=== PATIENT | female | born 1950 | race Caucasian/White ===

== ENCOUNTER → 2018-07-13 | Day surgery (SDC) | payer OTHER ==
[~2018-07-13] VITALS: Ht 160 cm; Wt 68.0 kg
[~2018-07-13] MED LIST: ALENDRONATE SOD70 M1 PO; ATORVASTATIN CA80 M1 PO; CALCIUM 600 +1 EAC2 PO; DULOXETINE HCL60 MG PO; ECPIRIN325 MG PO; FISH OIL + D31 EACH PO; LANTUS SOL100 UNIT/1 SQ; LISINOPRIL-HCT1 EACH PO; LYRICA100 M1 PO; Lopressor25 MG PO; METFORMIN HYD1000 MG PO; VITAMIN B121000 MC1 PO
--- NOTE | ~2018-07-13 | O ---
[place], [place] OPERATIVE NOTE NAME: GABRIELE HDZ UNIT #: [id number] ROOM: DOCTOR: NHUNG WESTFALL MD BIRTHDATE: [birth year] DOS: 07/13/2018 PREOPERATIVE DIAGNOSIS: Cataract, right eye. POSTOPERATIVE DIAGNOSIS: Cataract, right eye. OPERATION: Extracapsular cataract extraction by phacoemulsification with posterior chamber intraocular lens implantation, right eye. ANESTHESIA: Monitored standby. OPERATIVE FINDINGS AND PROCEDURE: 2% Xylocaine topical anesthetic gel was applied to the eye in the preop area. The patient was taken to the operating room and prepped and draped in the standard fashion for sterile intraocular surgery. A time out procedure was performed verifying correct patient, correct site and corrects lens with Yunier Westfall M.D. The operating microscope was swung into position and the lid speculum was inserted. Using a Delores paracentesis blade, a paracentesis was made through clear cornea. Viscoelastic was used to fill the anterior chamber. Using a metal keratome a 2.4 mm self-sealing clear corneal cataract incision was made temporally at the limbus. Using a pre-bent 25 gauge cystotome needle, a standard continuous curvilinear capsulorrhexis was performed. The anterior capsule was removed with forceps. The lens nucleus was hydrodissected and phacoemulsified in the posterior chamber. Cortical material was removed with the irrigation aspiration hand piece and the posterior capsule was then polished with a curet under irrigation. The posterior chamber and capsular bag were filled with viscoelastic. A posterior chamber intraocular lens manufactured by: Jan, Model AU00T0 and 18.0 diopters in strength were then inserted into the posterior chamber and within the capsular bag using the lens cartridge and injector system. Viscoelastic was removed using the irrigation aspiration handpiece. The anterior chamber was filled with balanced salt solution through the paracentesis. Both the paracentesis site and cataract incisions were hydrated with BSS and verified to be water-tight and self-sealing. Cefuroxime 1 mg/0.1 mL was injected into the anterior chamber through the paracentesis site. The incision checked to be water-tight using a Weck-Luz sponge. The integrity of the cataract wound and ocular tension were checked. Lid speculum and drapes were removed. The patient was transferred from the operating room to the recovery room in satisfactory condition. [place], [place] OPERATIVE NOTE NAME: GABRIELE HDZ UNIT #: [id number] ROOM: DOCTOR: NHUNG WESTFALL MD BIRTHDATE: [birth year] NHUNG WESTFALL MD CM:OPRECORD:OPERATIVE NOTE [id number] NHUNG WESTFALL MD 07/13/18 1136 interface
[2018-07-13 07:35] VITALS: BP 125/47
[2018-07-13 08:34] VITALS: BP 108/46
[2018-07-13 08:49] VITALS: BP 112/50
[2018-07-13 09:04] VITALS: BP 122/57
== END | disposition home or self-care (01) ==
LOC: SDC 07-08 12:30
DX: E10.36 Type 1 diabetes mellitus with diabetic cataract (principal); H25.811 Combined forms of age-related cataract, right eye; I10 Essential (primary) hypertension; I25.10 Atherosclerotic heart disease of native coronary artery without angina pectoris; I25.2 Old myocardial infarction; F17.210 Nicotine dependence, cigarettes, uncomplicated; F12.90 Cannabis use, unspecified, uncomplicated; Z88.8 Allergy status to other drugs, medicaments and biological substances; Z95.818 Presence of other cardiac implants and grafts; Z79.82 Long term (current) use of aspirin; Z79.899 Other long term (current) drug therapy; Z79.4 Long term (current) use of insulin; Z90.710 Acquired absence of both cervix and uterus; Z98.890 Other specified postprocedural states; Z72.89 Other problems related to lifestyle; Z83.3 Family history of diabetes mellitus

== ENCOUNTER → 2018-08-03 | Day surgery (SDC) | payer OTHER ==
[~2018-08-03] VITALS: Ht 160 cm; Wt 65.8 kg
--- NOTE | ~2018-08-03 | O ---
[place], [place] OPERATIVE NOTE NAME: GABRIELE HDZ UNIT #: [id number] ROOM: DOCTOR: NHUNG WESTFALL MD BIRTHDATE: [birth year] DOS: 08/03/2018 PREOPERATIVE DIAGNOSIS: Cataract, left eye. POSTOPERATIVE DIAGNOSIS: Cataract, left eye. OPERATION: Extracapsular cataract extraction by phacoemulsification with posterior chamber intraocular lens implantation, left eye. ANESTHESIA: Monitored standby. OPERATIVE FINDINGS AND PROCEDURE: 2% Xylocaine topical anesthetic gel was applied to the eye in the preop area. The patient was taken to the operating room and prepped and draped in the standard fashion for sterile intraocular surgery. A time out procedure was performed verifying correct patient, correct site and corrects lens with Yunier Westfall M.D. The operating microscope was swung into position and the lid speculum was inserted. Using a Delores paracentesis blade, a paracentesis was made through clear cornea. Viscoelastic was used to fill the anterior chamber. Using a metal keratome a 2.4 mm self-sealing clear corneal cataract incision was made temporally at the limbus. Using a pre-bent 25 gauge cystotome needle, a standard continuous curvilinear capsulorrhexis was performed. The anterior capsule was removed with forceps. The lens nucleus was hydrodissected and phacoemulsified in the posterior chamber. Cortical material was removed with the irrigation aspiration hand piece and the posterior capsule was then polished with a curet under irrigation. The posterior chamber and capsular bag were filled with viscoelastic. A posterior chamber intraocular lens manufactured by: Jan, Model AU00T0, 17.5 diopters in strength were then inserted into the posterior chamber and within the capsular bag using the lens cartridge and injector system. Viscoelastic was removed using the irrigation aspiration handpiece. The anterior chamber was filled with balanced salt solution through the paracentesis. Both the paracentesis site and cataract incisions were hydrated with BSS and verified to be water-tight and self-sealing. Cefuroxime 1 mg/0.1 mL was injected into the anterior chamber through the paracentesis site. The incision checked to be water-tight using a Weck-Luz sponge. The integrity of the cataract wound and ocular tension were checked. Lid speculum and drapes were removed. The patient was transferred from the operating room to the recovery room in satisfactory condition. [place], [place] OPERATIVE NOTE NAME: GABRIELE HDZ UNIT #: [id number] ROOM: DOCTOR: NHUNG WESTFALL MD BIRTHDATE: [birth year] NHUNG WESTFALL MD CM:OPRECORD:OPERATIVE NOTE [phone] NHUNG WESTFALL MD 08/03/18910 interface
[2018-08-03 07:15] VITALS: BP 134/72
[2018-08-03 08:32] VITALS: BP 138/58
[2018-08-03 08:45] VITALS: BP 135/57
[2018-08-03 08:58] VITALS: BP 125/58
== END | disposition home or self-care (01) ==
LOC: SDC 07-28 12:30
DX: E11.36 Type 2 diabetes mellitus with diabetic cataract (principal); H25.812 Combined forms of age-related cataract, left eye; I25.2 Old myocardial infarction; I25.10 Atherosclerotic heart disease of native coronary artery without angina pectoris; I10 Essential (primary) hypertension; F15.11 Other stimulant abuse, in remission; E11.40 Type 2 diabetes mellitus with diabetic neuropathy, unspecified; F41.9 Anxiety disorder, unspecified; F17.210 Nicotine dependence, cigarettes, uncomplicated; F32.9 Major depressive disorder, single episode, unspecified; Z98.41 Cataract extraction status, right eye; Z79.82 Long term (current) use of aspirin; Z79.4 Long term (current) use of insulin; Z79.899 Other long term (current) drug therapy; Z72.89 Other problems related to lifestyle; Z90.710 Acquired absence of both cervix and uterus; Z95.818 Presence of other cardiac implants and grafts; Z88.8 Allergy status to other drugs, medicaments and biological substances; Z98.890 Other specified postprocedural states; Z83.3 Family history of diabetes mellitus

== ENCOUNTER 2019-07-06 15:24 | Inpatient (IN) | payer MEDICARE ==
[2019-07-06] VITALS (9 sets, daily range): BP systolic 120–157; BP diastolic 54–97
[~2019-07-06] VITALS: Ht 160 cm; Wt 65.1 kg
[2019-07-06 15:51] LABS: BASO % 0.3 % (0.0-1.0); EOS % 0.1 % (1.0-4.0); HEMATOCRIT 44.2 % (37.0-47.0); HEMOGLOBIN 14.4 g/dl (12.0-16.0); LYMPH # 1.5 10*3/uL (1.3-4.4); LYMPH % 13.9 % (27.0-41.0); MEAN CELL VOLUME 85.2 fl (81.0-99.0); MEAN CORPUSCULAR HGB 27.7 pg (27.0-31.0); MEAN CORPUSCULAR HGB CONC 32.6 g/dl (33.0-37.0); MEAN PLATELET VOLUME 12.6 fl (9.6-12.3); MONO # 1.2 10*3/uL (0.1-1.0); NEUT # 7.9 10*3/uL (2.3-7.9); NEUT % 74.4 % (47.0-73.0); PLATELET COUNT AUTOMATED 205 10*3/uL (130-400); RED BLOOD COUNT 5.19 10*6/uL (4.10-5.10); RED CELL DISTRI WIDTH 16.4 % (0-14.5); WHITE BLOOD COUNT 10.6 10*3/uL (4.8-10.8)
[2019-07-06 16:42] LABS: ACT PARTIAL THROMBO TIME 29.9 SECONDS (20.0-32.1)
[2019-07-06 16:45] LABS: ALBUMIN 3.3 gm/dl (3.1-4.5); BUN 23 mg/dl (7-24); CHLORIDE 101 mmol/L (98-107); CREATININE 0.89 mg/dL (0.55-1.02); POTASSIUM 3.2 mmol/L (3.5-5.1); SGOT/AST 26 IU/L (3-35); SGPT/ALT 18 U/L (12-78); SODIUM 138 mmol/L (136-145); TOTAL PROTEIN 7.2 gm/dL (6.4-8.2)
[2019-07-06 16:47] LABS: ALKALINE PHOSPHATASE 68 U/L (45-117)
--- NOTE | 2019-07-06 17:08 | NUR ---
PATIENT CARDIZEM DRIP INCREASED TO 10MCG/HR. HR 149, B/P 130/97.
--- NOTE | 2019-07-06 18:55 | NUR ---
LAB CALLED WITH CRITICAL TROPONIN OF 1.810 M. FIFI NOTIFIED.
--- NOTE | 2019-07-06 21:00 | NUR ---
PT RESTING IN BED AT THIS TIME WATCHING TV. PT HAS BEEN ASSISTED TO THE RESTROOM BY THIS NURSE. AMBULATED WITH STEADY GAIT. DENIED THE NEED FOR ANYTHING AT THIS TIME. CALL LIGHT WITHIN REACH.
--- NOTE | 2019-07-06 21:40 | NUR ---
A 68, admitted to [facility]U, under the services of JERALD Weber DO with a diagnosis of pneumonia, afib with RVR. Chief complaint is "coughing and flu like symptoms for 3 days". Patient arrived via stretcher from ER. Monitor applied. Initial assessment completed. Vital signs taken and recorded. JERALD WEBER DO notified of admission to the unit. Orders received. See assessment for past medical history, medications and allergies. Patient and/or family oriented to unit. [facility] visitation policy reviewed. Clothing/patient valuable form completed. JESSICA BENNETT
[2019-07-06] MEDS ORDERED: CODEINE PO (22:30)
[2019-07-06] MEDS ORDERED: TYLENOL PO (22:30)
--- NOTE | 2019-07-06 23:53 | NUR ---
AT 2320 DR LUCIA NOTIFIED OF PT CONSULT. NO NEW ORDERS RECEIVED. DR VASQUEZ HERE DURING NOTIFICATION....HE IS ALSO AWARE OF LAST TROPONIN AND CTA RESULTS. PT REMAINS ASYMPTOMATIC, DENYING CHEST PAIN. SHE HAD EARLIER HAD NAUSEA, WHICH SHE STATES SHE VERY OFTEN HAS, BUT WAS RELIEVED WITH ZOFRAN AT 2220 AND SHE PROCEEDED TO EAT. HEPARIN GTT CONTINUES AT 12 U/KG/HR AND CARDIZEM GTT AT 10MG/HR. BOLUSES ORDERED. PT HAS BEEN UP TO [facility] [place] [place]. SHE IS STEADY AND JOKING.
[2019-07-07] VITALS (15 sets, daily range): BP systolic 81–142; BP diastolic 36–90
--- NOTE | 2019-07-07 00:50 | NUR ---
CONFIRMED WITH DR VASQUEZ THAT DR ANGELES TO BE CONSULTED IN AM, NOT AT THIS TIME, PT IS NOT IN RESPIRATORY DISTRESS AT THIS TIME.
--- NOTE | 2019-07-07 04:09 | NUR ---
PT SLEEPING. HR 90'S. BP 81/46(56). TITRATED CARDIZEM GTT DOWN TO 7.5MG/HR. PT'S SKIN W/D. SHE STATED " OH I WAS SLEEPING SO GOOD FINALLY NAVARRO NAVARRO." WILL REASSESS BP AFTER TITRATION.
--- NOTE | 2019-07-07 04:51 | NUR ---
DR VASQUEZ NOTIFIED OF BP 81/36 MAP 64. 84/40 MANUALLY. ORDERS RECEIVED.
--- NOTE | 2019-07-07 05:04 | NUR ---
HR MAINTAINING 80'S - 100/MIN. CARDIZEM TITRATED DOWN TO 5MG/HR.
--- NOTE | 2019-07-07 05:08 | NUR ---
CURRENT BAG OF NS INFUSING AT 500CC/HR UNTIL 0600 THEN TO INFUSE AT 100CC/HR. BP TO BE OBTAINED AT THAT TIME AND TO NOTIFY DR VASQUEZ.
--- NOTE | 2019-07-07 05:53 | NUR ---
PT DOZING AT INTERVALS. AT THIS TIME SHE IS SHOPPING FOR SHOES ON TV AND JOKING. DENIES DISCOMFORT.
--- NOTE | 2019-07-07 05:58 | NUR ---
DR VASQUEZ NOTIFIED OF BP 98/45(68). NO NEW ORDERS RECEIVED. IV BOLUS DONE AND NS AT 100CC/HR.
--- NOTE | 2019-07-07 06:54 | NUR ---
DR ANGELES NOTIFIED OF CONSULT. NO NEW ORDERS RECEIVED.
[2019-07-07 07:50] LABS: BASO % 0.2 % (0.0-1.0); HEMATOCRIT 40.9 % (37.0-47.0); HEMOGLOBIN 13.1 g/dl (12.0-16.0); LYMPH # 1.1 10*3/uL (1.3-4.4); LYMPH % 17.7 % (27.0-41.0); MEAN CELL VOLUME 85.9 fl (81.0-99.0); MEAN CORPUSCULAR HGB 27.5 pg (27.0-31.0); MEAN PLATELET VOLUME 12.2 fl (9.6-12.3); MONO # 0.2 10*3/uL (0.1-1.0); MONO % 3.3 % (3.0-9.0); NEUT # 4.8 10*3/uL (2.3-7.9); NEUT % 78.6 % (47.0-73.0); PLATELET COUNT AUTOMATED 177 10*3/uL (130-400); RED BLOOD COUNT 4.76 10*6/uL (4.10-5.10); RED CELL DISTRI WIDTH 16.3 % (0-14.5); WHITE BLOOD COUNT 6.1 10*3/uL (4.8-10.8)
[2019-07-07 08:10] LABS: ALKALINE PHOSPHATASE 66 U/L (45-117); BUN 20 mg/dl (7-24); CHLORIDE 105 mmol/L (98-107); CHOLESTEROL 93 mg/dL (<200); CREATININE 0.89 mg/dL (0.55-1.02); FREE T4 1.25 ng/dl (0.76-1.46); HDL CHOLESTEROL 35 mg/dl (40-60); LDL CHOLESTEROL 41 mg/dL (9-159); PHOSPHOROUS 3.4 mg/dL (2.5-4.9); SGOT/AST 23 IU/L (3-35); SGPT/ALT 18 U/L (12-78); SODIUM 138 mmol/L (136-145); TRIGLYCERIDES 86 mg/dl (<150); VLDL CHOLESTEROL 17 mg/dL (6-40)
[2019-07-07 08:14] LABS: THYROID STIM HORMONE (HS) 0.432 uIU/ml (0.358-4.75)
[2019-07-07 09:06] LABS: VITAMIN D, 25-HYDROXY 57.2 ng/mL (30-100)
--- NOTE | 2019-07-07 09:40 | NUR ---
PATIENT INSTRUCTED ON FLUTTER VALVE.
--- NOTE | 2019-07-07 11:00 | NUR ---
Counseling Center Director in to talk to patient. Patient states lives at home with her . She is currently taking care of her brother. There are 0 steps in the home. Physician: Dr. Maged Villa Pharmacy: [facility] for short term medications and mail in for maintenance Home health services: none Patient's level of ADLs: INDEPENDENT Patient has working utilities: yes DME: none Follow-up physician's appointment after d/c: will be made by the hospitalist nurse director upon discharge Does patient want to access PORTAL?: no Discharge plan discussed with patient. Family at bedside. She lives at home with her and is currently taking care of her brother. She is independent in her ADLs and ambulation. Discussed home health care services and she denies any home needs at this time. When medically stable she will be discharged to home. Her family will provide transportation on discharge. WOODY MONTEJO
--- NOTE | 2019-07-07 14:42 | NUR ---
PT TRANSFERED TO [facility] AT THIS TIME VIA BED. REPORT GIVEN TO MEENA MG.
--- NOTE | 2019-07-07 15:00 | NUR ---
REPORT RECIEVED FROM SAURAV SCOTT.INITIAL ASSESSMENT COMPLETED AT THIS TIME. VOICES NO NEEDS. STABLE.RESPS EASY ON RA.WILL CONTINUE TO MONITOR.
--- NOTE | 2019-07-07 19:20 | NUR ---
IN PT ROOM AT THIS TIME TO COMPLETE ASSESSMENT. PT STATES THAT SHE HAS NO COMPLAINTS AT THIS TIME, THAT SHE IS JUST TIRED OTHER RODRIGUEZ NEGATIVE ASSESSMENT. CALL LIGHT IS WITHIN REACH, WILL CONTINUE TO MONITOR
--- NOTE | 2019-07-07 21:20 | NUR ---
CALLED PHARMACY TO SEE IF ROCEPHIN IS COMPATIBLE WITH CARDIZEM OR HEPARIN, AND THEY STATE THAT IT IS COMPATIBLE WITH BOTH
--- NOTE | 2019-07-07 21:33 | NUR ---
IV started right hand with #22 protective cath after 1 attempts. Site prepped with Chloroprep. Sterile dressing applied. Patient tolerated procedure well. IV infusing at 100 cc/hr. LANIE MCCOY
--- NOTE | 2019-07-07 22:40 | NUR ---
PT CARDIZEM TITRATED DOWN TO 5 DUE TO HR SUSTAINING IN THE 70-80'S. WILL CONTINUE TO ASSES AND EVALUATE AGAIN AT 2300
--- NOTE | 2019-07-07 22:47 | NUR ---
CALLED DR VASQUEZ DUE TO PT HR IN THE 60S AFTER BUMPING CARDIZEM TO 5ML/HR. HE STATES TO TAKE HER DOWN TO 2.5 ML/HR AND REASSES IN A HALF HOUR
--- NOTE | 2019-07-07 23:14 | NUR ---
PT REQUESTING SOMETHING TO HELP HER SLEEP. PRN RESTORIL PO IS GIVEN AT THIS TIME. CALL LIGHT WITHIN REACH, WILL CONTINUE TO MONITOR
--- NOTE | 2019-07-07 23:50 | NUR ---
DR VASQUEZ ON THE FLOOR AND STATES TO TAKE THE PT OFF THE CARDIZEM. PT IS TAKEN OFF OF THE CARDIZEM DRIP AT THIS TIME. CALL LIGHT WITHIN REACH, WILL CONTINUE TO MONITOR
[2019-07-08] VITALS (11 sets, daily range): BP systolic 106–146; BP diastolic 43–78
--- NOTE | 2019-07-08 00:40 | NUR ---
24 HR chart check completed.
--- NOTE | 2019-07-08 03:56 | NUR ---
DR VASQUEZ ON THE FLOOR AND NOTIFIED OF HR THAT DIPPED DOWN TO 45 AND IS NOW STEADY OF HR 60-70'S. STATES TO CONTINUE TO MONITOR
--- NOTE | 2019-07-08 05:14 | NUR ---
CALLED DR VASQUEZ DUE TO PT HR BEING IN 130S AND HE STATES TO PUT PT BACK ON CARDIZEM AT 2.5ML/HR AND MONITOR HER AT THAT
[2019-07-08 06:12] LABS: CHLORIDE 112 mmol/L (98-107); SODIUM 143 mmol/L (136-145)
[2019-07-08 06:23] LABS: BUN 18 mg/dl (7-24); CREATININE 0.76 mg/dL (0.55-1.02)
[2019-07-08 06:26] LABS: HEMATOCRIT 40.1 % (37.0-47.0); HEMOGLOBIN 12.8 g/dl (12.0-16.0); MEAN CELL VOLUME 84.4 fl (81.0-99.0); MEAN CORPUSCULAR HGB 26.9 pg (27.0-31.0); MEAN CORPUSCULAR HGB CONC 31.9 g/dl (33.0-37.0); MEAN PLATELET VOLUME 12.3 fl (9.6-12.3); PLATELET COUNT AUTOMATED 214 10*3/uL (130-400); RED BLOOD COUNT 4.75 10*6/uL (4.10-5.10); RED CELL DISTRI WIDTH 16.6 % (0-14.5); WHITE BLOOD COUNT 13.2 10*3/uL (4.8-10.8)
[2019-07-08 07:33] LABS: ACANTHOCYTES FEW; PLATELET SUFFICIENCY NORMAL (NORMAL); TOTAL CELLS COUNTED 100 #CELLS
--- NOTE | 2019-07-08 08:00 | NUR ---
CARDIZEM GTT AT 2.5 CC/HR, HEART RATE AFIB BOUNCING ALL OVER FROM 79-140. MAINLY LOW 100'S. CARDIZEM GTT INCREASED TO 5/HR.
--- NOTE | 2019-07-08 09:00 | NUR ---
CARDIZEM GTT IS NOW AT 10CC/HR DUE TO UNCONTROLLED AFIB.
--- NOTE | 2019-07-08 09:30 | NUR ---
DR. CUADRA HAS ROUNED.
--- NOTE | 2019-07-08 10:50 | NUR ---
DR. LUCIA HAS ROUNDED AND NEW ORDER TO INCREASE TOPROL XL.
--- NOTE | 2019-07-08 11:45 | NUR ---
DR. ANGELES HERE ROUNDING ON PATIENT.
--- NOTE | 2019-07-08 12:06 | NUR ---
SPOKE TO DR. BETH SALVADOR PATIENT IS ORDERED A STRESS TEST WEDNESDAY AND A BRONCH. WILL TOUCH BASE WITH DR. ANGELES.
--- NOTE | 2019-07-08 12:31 | NUR ---
DR. LUCIA IS DOING STRESS TEST WEDNESDAY, BRONCHOSCOPY WEDNESDAY WITH DR. ANGELES, SPOKE WITH BOTH DOCTORS REGARDING THIS AND REFORMATORY ATTENDANT. SENT NEW MESSAGE TO OPERATING ROOM.
--- NOTE | 2019-07-08 19:40 | NUR ---
IN PT ROOM TO COMPLETE ASSESSMENT, PT COMPLAINS OF BACK AND RIB PAIN DUE TO COUGHIN AND WANTS TO KNOW IF SHE CAN HAVE COUGH DROPS ORDERED. 2 IV SITES STILL RUNNING AND ASYMPTOMATIC. CALL LIGHT WITHIN REACH, WILL CONTINUE TO MONITOR
--- NOTE | 2019-07-08 19:51 | NUR ---
CALLED DR BYRD AND HE STATES TO ADD A ORDER OF COUGH DROPS PER THE PT REQUST, WILL ADD ORDER REQUSTED
--- NOTE | 2019-07-08 19:58 | NUR ---
PT STATES SHE IS HAVING PAIN IN HER RIBS AND ABCK AND RATES IS 8/10. PRN NORCO IS GIVEN AT THIS TIME, WILL CONTINUE TO MONITOR FOR EFFECTIVENESS
--- NOTE | 2019-07-08 20:59 | NUR ---
IN PT ROOM AT THIS TIME AND SHE STATES THAT THE PAIN PILL IS EFFECTIVE. PRN RESTORIL PO GIVEN AT THIS TIME TO HELP THE PATIENT SLEEP
--- NOTE | 2019-07-08 21:30 | NUR ---
CALLED DR BYRD AND HE STATES TO BUMP DOWN CARDIZEM FROM 10 TO 5 DUE TO HR BEING IN 55-80'S AND MONITOR HER HEART RATE THEN
--- NOTE | 2019-07-08 21:51 | NUR ---
PT TITRATED TO 2.5ML/HR ON CARDIZEM PER DR BYRD REQUEST DUE TO HR BEING 50-60S
--- NOTE | 2019-07-08 21:55 | NUR ---
CALLED DR LUCIA DUE TO PT HR BEING 47-60S. HE STATES LONG THE HR IS LESS THAN 100 TO KEEP HER OFF OF THE CARDIZEM DRIP. CARDIZEM STOPPED AT THIS TIME
[2019-07-09] VITALS (8 sets, daily range): BP systolic 133–162; BP diastolic 57–83
--- NOTE | 2019-07-09 00:19 | NUR ---
24 HR chart check completed.
--- NOTE | 2019-07-09 08:00 | NUR ---
PATIENT REMAINS OFF CARDIZEM GTT, HOWEVER HR IS 80-120 AFTER BEING WOKE. WILL MONITOR.
--- NOTE | 2019-07-09 09:30 | NUR ---
PER DR. MCCARTHY DO NOT RESTART CARDIZEM GTT UNLESS PATIENT HR MAINTAINS > 120.
--- NOTE | 2019-07-09 10:24 | NUR ---
MEDICATED WITH PRN NORCO PER ORDER AND REQUEST.
--- NOTE | 2019-07-09 10:58 | NUR ---
CARDIZEM GTT RESTARTED AT 10CC/HR HR STILL ALL OVER THE PLACE FROM 110-140 DEPENDING ON ACTIVITY. PATIENT UP AND BATHING AT THIS TIME. PER DR. CAMPOS RESTART.
--- NOTE | 2019-07-09 19:29 | NUR ---
IN PT ROOM AT THIS TIME PT IS COMPLAINING OF A COUGH, SHE NOTES THAT THE COUGH DROPS ARE NOT HELPING. IVS RUNNING AND NO PROBLEMS THERE. CALL LIGHT WITHIN REACH, WILL CONTINUE TO MONITOR. CALLED DR BYRD PER PT REQUEST OF WANTING SOMETHING TO HELP DECREASE HER COUGH, HE WILL ADD AN ORDER
--- NOTE | 2019-07-09 19:57 | NUR ---
NORCO FOR PAIN AND ROBITUSSIN FOR COUGH IS GIVEN, WILL MONITOR FOR EFFECTIVENESS
--- NOTE | 2019-07-09 20:39 | NUR ---
DR LUCIA ON THE FLOOR AND STATES THROUGH THE NIGHT IF PT HR REMAINS UNDER 100 TO KEEP HER OFF OF THE CARDIZEM DRIP
--- NOTE | 2019-07-09 21:55 | NUR ---
PT TAKEN OFF CARDIZEM DUE TO HR SUSTAINING <100. WILL CONTINUE TO MONITOR
--- NOTE | 2019-07-09 23:05 | NUR ---
IN PT ROOM AT THIS TIME TO SEE IF RESTORIL WAS EFFECTIVE AND PT IS SLEEPING. CALL LIGHT IS WITHIN REACH, WILL CONTINUE TO MONITOR
[2019-07-10] VITALS (7 sets, daily range): BP systolic 142–168; BP diastolic 63–90
--- NOTE | 2019-07-10 01:51 | NUR ---
24 HR chart check completed.
--- NOTE | 2019-07-10 03:36 | NUR ---
PT STATED ON 5 ML/HR CARDIZEM AT THIS TIME DUE TO HR BEING 120-130S. WILL CONTINUE TO MONITOR
--- NOTE | 2019-07-10 04:02 | NUR ---
PT OFF CARDIZEM AT THIS TIME DUE TO HR BEING IN THE 40S WILL CONTINUE TO MONITOR
[2019-07-10 06:55] LABS: BASO % 0.2 % (0.0-1.0); HEMOGLOBIN 14.2 g/dl (12.0-16.0); LYMPH # 2.2 10*3/uL (1.3-4.4); LYMPH % 15.5 % (27.0-41.0); MEAN CELL VOLUME 84.7 fl (81.0-99.0); MEAN CORPUSCULAR HGB 26.7 pg (27.0-31.0); MEAN CORPUSCULAR HGB CONC 31.6 g/dl (33.0-37.0); MEAN PLATELET VOLUME 12.4 fl (9.6-12.3); MONO % 7.2 % (3.0-9.0); NEUT # 10.7 10*3/uL (2.3-7.9); PLATELET COUNT AUTOMATED 235 10*3/uL (130-400); RED BLOOD COUNT 5.31 10*6/uL (4.10-5.10); RED CELL DISTRI WIDTH 16.9 % (0-14.5)
[2019-07-10 07:13] LABS: BUN 20 mg/dl (7-24); CHLORIDE 105 mmol/L (98-107); CREATININE 0.75 mg/dL (0.55-1.02); POTASSIUM 3.3 mmol/L (3.5-5.1); SODIUM 140 mmol/L (136-145)
--- NOTE | 2019-07-10 09:11 | NUR ---
HEPARIN CHANGED TO 14U/KG/HR D/T PTT OF 41.5 THIS MORNING. REPEAT PTT WILL BE DRAWN AT 1430
--- NOTE | 2019-07-10 10:27 | NUR ---
INFORMED CONSENT SIGNED FOR LEXISCAN WITH DR. GERBER. RESTING EKG AFIB, HR 133, BP 124/68. PULSE OX 93% WITH BILATERAL RHONCHI. COMPLETED ONE MINUTE OF LEXISCAN PROTOCOL RECEIVING LEXISCAN 0.4MG OVER 10 SECONDS. PVC'S (COUPLETS) PRESENT WITH NO ST CHANGES. PT C/O SOB AND STOMACH PAIN. LAST RECOVERY HR 149, BP 128/64. WAITING NUCLEAR SCANNING IN STABLE CONDITION.
--- NOTE | 2019-07-10 11:29 | NUR ---
PT BACK FROM STRESS TEST
--- NOTE | 2019-07-10 11:51 | NUR ---
PTS HEART SUSTAINING 150-160'S. CALLED DR GERBER WHO STATES TO PUT CARDIZEM DRIP BACK ON-15MG BOLUS AND THEN AT 5MG/H.
--- NOTE | 2019-07-10 15:13 | NUR ---
Shift chart check completed.
--- NOTE | 2019-07-10 15:17 | NUR ---
PTT IS NOW 41.3. ADJUSTED TO 16U/KG/HR-10.4 ML/H PER HERPARIN PROTOCOL. VERIFIED BY TWO RNS. REPEAT PTT ORDERED FOR 6 HOURS LATER.
--- NOTE | 2019-07-10 20:15 | NUR ---
PATIENT'S CARDIZEM TITRATED UP FROM 5MG/HR TO 10MG/HR DUE TO HEART RATE BEING IN THE 110'S-130'S CONTINUOUSLY. WILL MONITOR PATIENT.
--- NOTE | 2019-07-10 21:45 | NUR ---
APTT 58.0. WITHIN THERAPEUTIC RANGE. NO CHANGE AT THIS TIME PER ORDER/PROTOCOL. APTT ENTERED FOR 0507/11/2019
--- NOTE | 2019-07-10 22:45 | NUR ---
PATIENT'S HR IN 70'S AND LOW 80'S. CARDIZEM TITRATED DOWN TO 5MG/HR
[2019-07-11] VITALS (13 sets, daily range): BP systolic 125–160; BP diastolic 61–100
--- NOTE | 2019-07-11 00:21 | NUR ---
PATIENT'S HEART RATE DROPPING DOWN INTO THE HIGH 50'S AND 60'S. STOPPED CARDIZEM DRIP. NOTIFIED DR CAMPOS.
[2019-07-11 05:43] LABS: BUN 22 mg/dl (7-24); CHLORIDE 103 mmol/L (98-107); CREATININE 0.75 mg/dL (0.55-1.02); POTASSIUM 3.7 mmol/L (3.5-5.1); SODIUM 140 mmol/L (136-145)
--- NOTE | 2019-07-11 05:48 | NUR ---
CALLED. AWARE THAT HEPARIN STILL RUNNING AT THIS TIME. INSTRUCTED TO D/C HEPARIN GTT NOW PT IS FOR A BRONCH TODAY. HEPARIN GTT D/Josue.
--- NOTE | 2019-07-11 06:13 | NUR ---
PATIENT'S HEART RATE IN THE 110'S-140'S CONTINUOUSLY. RESTARTED CARDIZEM DRIP PER ORDER. WILL ASSESS.
[2019-07-11 06:24] LABS: BASO % 0.2 % (0.0-1.0); HEMATOCRIT 46.5 % (37.0-47.0); HEMOGLOBIN 14.9 g/dl (12.0-16.0); LYMPH # 2.2 10*3/uL (1.3-4.4); LYMPH % 20.7 % (27.0-41.0); MEAN CELL VOLUME 84.5 fl (81.0-99.0); MEAN CORPUSCULAR HGB 27.1 pg (27.0-31.0); MEAN PLATELET VOLUME 12.5 fl (9.6-12.3); MONO # 0.8 10*3/uL (0.1-1.0); MONO % 7.7 % (3.0-9.0); NEUT # 7.6 10*3/uL (2.3-7.9); NEUT % 70.4 % (47.0-73.0); PLATELET COUNT AUTOMATED 225 10*3/uL (130-400); RED CELL DISTRI WIDTH 16.7 % (0-14.5); WHITE BLOOD COUNT 10.7 10*3/uL (4.8-10.8)
--- NOTE | 2019-07-11 09:30 | NUR ---
Pie Chef in to see patient. She is currently not in her room. Will follow up at a later time.
--- NOTE | 2019-07-11 11:07 | NUR ---
RETURN FROM SURGERY
--- NOTE | 2019-07-11 11:09 | NUR ---
SPOKE TO ELIZ CRABTREE TO RESTART HEAPRIN 07/12/19 AT 0600. WILL NOTIFY CARDIOLOGY
--- NOTE | 2019-07-11 11:47 | NUR ---
cardiology in to see patient. keep patient npo at midnight tonight for possible ronal with cardioversion tomorrow. will have patient receive one dose of lovenox in the am and then start on oral anticoagulation if needed tomorrow evening. will start cardizem po to help with rate control. dr. moreno will enter orders
--- NOTE | 2019-07-11 12:06 | NUR ---
PT COMPLAIN OF PAIN, GENERALIZED CHEST. NORCO GIVEN.
--- NOTE | 2019-07-11 13:00 | NUR ---
NORCO EFFECTIVE FOR PAIN
--- NOTE | 2019-07-11 13:35 | NUR ---
CARDIZEM GTT STOPPED PER ORDER. WILL MONITOR HEART RATE
--- NOTE | 2019-07-11 16:42 | NUR ---
DR. ANGELES CALLED, HE IS OKAY WITH CARDIOLOGY STARTING PATIENT ON ORAL ANTICOAGULATION STARTING TOMORROW
--- NOTE | 2019-07-11 18:32 | NUR ---
PT COMPLAIN OF PAIN IN BACK/CHEST, NORCO GIVEN. WILL MONITOR FOR EFFECTIVENESS
--- NOTE | 2019-07-11 19:45 | NUR ---
PER DR. GERBER, PLEASE GIVE ONE DOSE OF THERAPEUTIC LOVENOX IN AM AT 0700, DO NOT RESTART IV HEPARIN IN AM. PT TO HAVE SANDRA WITH [facility] TOMORROW AT 11O0
--- NOTE | 2019-07-11 20:22 | NUR ---
1950 SITTING UP ON THE SIDE OF THE BED. HEP LOCK INTACT. ALERT AND PLEASANT. NO DISTRESS NOTED. AWARE OF POSSIBLE SANDRA IN AM AND NPO AFTER MIDNIGHT ORDER.
--- NOTE | 2019-07-11 21:22 | NUR ---
2109 BEDSIDE BLOOD SUGAR ELEVATED. CHECKED X'S 2. STAT REFLEX ORDERED AND LAB HERE TO DRAW. RESTORIL PO FOR SLEEP. WILL MONITOR.
--- NOTE | 2019-07-11 21:50 | NUR ---
NOTIFIED OF ELEVATED BLOOD SUGAR. ORDERS RECEIVED. WILL RECHECK BLOOD SUGAR IN 2 HOURS.
--- NOTE | 2019-07-11 22:09 | NUR ---
EARLIER RESTORIL EFFECTIVE. RESTING IN BED WITH EYES CLOSED. APPEARS TO BE SLEEPING.
[2019-07-12] VITALS (10 sets, daily range): BP systolic 102–155; BP diastolic 57–76
--- NOTE | 2019-07-12 | NUR ---
DR. CAMPOS NOTIFIED OF BEDSIDE BLOOD SUGAR OF 384. PT IS NPO NOW. TO JUST WATCH PT
--- NOTE | 2019-07-12 02:16 | NUR ---
RESTING IN BED WITH EYES CLOSED. APPEARS TO BE SLEEPING.
--- NOTE | 2019-07-12 05:07 | NUR ---
PT UP IN BR BATHING. HR UP IN THE 140'S. WHEN RESTING, HR IS LOW 40 BUT REMAINS A-FIB. WILL CONT TO MONITOR.
--- NOTE | 2019-07-12 06:06 | NUR ---
RESTING IN BED, HR IN THE 80'S. REMAINS WITHOUT C/O'S. CONDITION GUARDED.
[2019-07-12 06:56] LABS: CHLORIDE 105 mmol/L (98-107); SODIUM 141 mmol/L (136-145)
[2019-07-12 06:59] LABS: BUN 31 mg/dl (7-24); CREATININE 1.03 mg/dL (0.55-1.02)
[2019-07-12 07:13] LABS: POTASSIUM 4.8 mmol/L (3.5-5.1)
[2019-07-12 12:03] LABS: ACID FAST SPEC PROCESSING Concentration (.)
--- NOTE | 2019-07-12 12:32 | NUR ---
RETURNED FROM [facility]. SB ON THERMITE BOMB LOADER HR 58. RESP EASY AND NONLABORED ON RA. NO DISTRESS NOTED. CALL LIGHT IN REACH. WILL MONITOR
--- NOTE | 2019-07-12 14:12 | NUR ---
SPOKE WITH DR GEORGE RE: RATE AND RHYTHM AND BP, NEW ORDERS RECEIVED
--- NOTE | 2019-07-12 14:39 | NUR ---
DR GEORGE NOTIFIED OF PT FLIPPED OVER TO AFIBB HE 100-140'S. ORDERS RECEIVED.
--- NOTE | 2019-07-12 14:46 | NUR ---
DR WOODARD CALLED AND NOTIFIED OF PT IN AFIBB AT THIS TIME.
--- NOTE | 2019-07-12 16:18 | NUR ---
Heart rate improved, heart rate low to mid 100's at this time. Will monitor
--- NOTE | 2019-07-12 17:45 | NUR ---
DR GERBER CALLED AND NOTIFIED OF CONTINUED HR 120-150'S. ORDERS RECEIVED.
--- NOTE | 2019-07-12 18:54 | NUR ---
MEDICATIONS EFFECTIVE THAT IS TIME. HR 80-90'S. WILL MONITOR
[2019-07-13] VITALS (11 sets, daily range): BP systolic 116–162; BP diastolic 61–88
[2019-07-13 06:20] LABS: HEMATOCRIT 49.5 % (37.0-47.0); HEMOGLOBIN 15.4 g/dl (12.0-16.0); MEAN CELL VOLUME 86.7 fl (81.0-99.0); MEAN CORPUSCULAR HGB CONC 31.1 g/dl (33.0-37.0); MEAN PLATELET VOLUME 11.7 fl (9.6-12.3); PLATELET COUNT AUTOMATED 328 10*3/uL (130-400); RED BLOOD COUNT 5.71 10*6/uL (4.10-5.10); WHITE BLOOD COUNT 16.2 10*3/uL (4.8-10.8)
[2019-07-13 06:49] LABS: ALBUMIN 3.2 gm/dl (3.1-4.5); BUN 29 mg/dl (7-24); CHLORIDE 99 mmol/L (98-107); CREATININE 1.05 mg/dL (0.55-1.02); POTASSIUM 4.4 mmol/L (3.5-5.1); SGOT/AST 22 IU/L (3-35); SGPT/ALT 59 U/L (12-78); SODIUM 137 mmol/L (136-145); TOTAL PROTEIN 7.5 gm/dL (6.4-8.2)
[2019-07-13 06:50] LABS: ALKALINE PHOSPHATASE 73 U/L (45-117)
[2019-07-13 06:54] LABS: BURR CELLS FEW; PLATELET SUFFICIENCY NORMAL (NORMAL); TOTAL CELLS COUNTED 100 #CELLS
--- NOTE | 2019-07-13 08:00 | NUR ---
ON FLOOR AND AWARE OF A-FIB/RVR. THIS NURSE WILL NOTIFY CARDIOLOGY.
--- NOTE | 2019-07-13 08:05 | NUR ---
CARDIOLOGY CALLED AT THIS TIME REGARDING A-FIB/RVR. LEFT MESSAGE TO RECEIVE A CALL BACK. HR RANGING BETWEEN 120-150'S. PT ASYMPTOMATIC. BP 132/84. AWAITING RETURN PHONE CALL.
--- NOTE | 2019-07-13 08:18 | NUR ---
THIS NURSE SPOKE WITH REGARDING A-FIB/RVR THIS AM. NEW ORDERS TO BE ENTERED PER PHYSICIAN.
--- NOTE | 2019-07-13 09:00 | NUR ---
AMIODARONE GTT INITIATED PER ORDER. AMIODARONE BOLUS INITIATED PRIOR PER ORDER. MEDICATION VERIFIED BY 2 RN'S. HR RANGING ANYWHERE BETWEEN 115-140'S. WILL MONITOR EFFECTIVENESS.
--- NOTE | 2019-07-13 09:00 | NUR ---
Ware Dresser in to see patient. No new needs or request at this time. When medically stable she will be discharged to home. She denies any home needs.
--- NOTE | 2019-07-13 09:30 | NUR ---
NOTIFIED REGARDING PATIENT'S ANXIETY/TEARFULNESS. NEW ORDERS RECEIVED.
--- NOTE | 2019-07-13 09:38 | NUR ---
HR SEEMS TO BE DECREASING SLIGHTLY. HR RANGING BETWEEN 107-120'S. A-FIB. WILL CONTINUE TO MONITOR. AMIODORONE INFUSING AT 33ML/HR. CALL LIGHT WITHIN REACH.
--- NOTE | 2019-07-13 15:02 | NUR ---
AMIODORONE GTT DECREASED TO 17CC/HR PER ORDER. WILL CONTINUE TO MONITOR. HR NOW 117-120'S. CALL LIGHT WITHIN REACH.
--- NOTE | 2019-07-13 22:10 | NUR ---
TYLENOL GIVEN FOR C/O NECK PAIN. RATED PAIN A 7/10 WITH 10 BEING THE WORST. SEE EMAR. REINFORCED USE OF CALL LIGHT.
[2019-07-14] VITALS: BP 123/75
[2019-07-14 01:53] VITALS: BP 132/84
--- NOTE | 2019-07-14 03:06 | NUR ---
24 HR chart check completed.
[2019-07-14 04:00] VITALS: BP 129/69
[2019-07-14 06:26] LABS: ALBUMIN 2.8 gm/dl (3.1-4.5); BUN 31 mg/dl (7-24); CHLORIDE 102 mmol/L (98-107); CREATININE 0.91 mg/dL (0.55-1.02); POTASSIUM 4.2 mmol/L (3.5-5.1); SGOT/AST 16 IU/L (3-35); SGPT/ALT 51 U/L (12-78); SODIUM 137 mmol/L (136-145); TOTAL PROTEIN 6.4 gm/dL (6.4-8.2)
[2019-07-14 06:27] LABS: ALKALINE PHOSPHATASE 68 U/L (45-117)
[2019-07-14 07:30] LABS: HEMATOCRIT 43.7 % (37.0-47.0); HEMOGLOBIN 14.2 g/dl (12.0-16.0); MEAN CORPUSCULAR HGB 27.3 pg (27.0-31.0); MEAN CORPUSCULAR HGB CONC 32.5 g/dl (33.0-37.0); MEAN PLATELET VOLUME 12.1 fl (9.6-12.3); PLATELET COUNT AUTOMATED 268 10*3/uL (130-400); RED CELL DISTRI WIDTH 16.2 % (0-14.5); WHITE BLOOD COUNT 14.9 10*3/uL (4.8-10.8)
[2019-07-14 08:00] VITALS: BP 116/68
[2019-07-14 08:04] LABS: BURR CELLS FEW; PLATELET SUFFICIENCY NORMAL (NORMAL); TOTAL CELLS COUNTED 100 #CELLS
--- NOTE | 2019-07-14 09:00 | NUR ---
Band And Cuff Cutter in to see patient. No new needs or request at this time. When medically stable she will be discharged to home. She denies any home needs.
[2019-07-14 12:00] VITALS: BP 130/70
[2019-07-14] MEDS ORDERED: XARE20MG PO (13:05)
[2019-07-14] MEDS ORDERED: ASPIRIN CHEWABL81 M1 PO (13:05)
[2019-07-14] MEDS ORDERED: METOPROLOL SUCC50 M1 PO (13:05)
[2019-07-14] MEDS ORDERED: PACERONE200 MG PO (13:05)
[2019-07-14] MEDS ORDERED: PREDNISONE10 MG PO (13:05)
--- NOTE | 2019-07-14 14:39 | NUR ---
PT DISCHARGED AT THIS TIME WITH TO HOME.
--- NOTE | 2019-07-14 14:39 | NUR ---
Discharge instructions reviewed with patient/family. Patient receptive and verbalizes understanding. Follow-up care arranged. Written instructions given to patient/family. JEFF ZAMORA
== END 2019-07-14 14:44 | disposition home or self-care (01) | DRG 871 ==
LOC: ED 15:24 → 4E 19:33 → EDHOLD 19:33 → ICCU 19:33 → 4E 07-07 14:13
PROVIDERS: Emergency Medicine; Family Medicine; Hospitalist; Internal Medicine; Internal Medicine Critical Care Medicine; ADMIT Internal Medicine
DX: A41.9 Sepsis, unspecified organism (principal); I21.4 Non-ST elevation (NSTEMI) myocardial infarction; J18.8 Other pneumonia, unspecified organism; E44.1 Mild protein-calorie malnutrition; J44.1 Chronic obstructive pulmonary disease with (acute) exacerbation; J44.0 Chronic obstructive pulmonary disease with (acute) lower respiratory infection; C34.2 Malignant neoplasm of middle lobe, bronchus or lung; C34.31 Malignant neoplasm of lower lobe, right bronchus or lung; I48.91 Unspecified atrial fibrillation; D72.810 Lymphocytopenia; I10 Essential (primary) hypertension; I25.10 Atherosclerotic heart disease of native coronary artery without angina pectoris; M81.0 Age-related osteoporosis without current pathological fracture; R65.20 Severe sepsis without septic shock; F32.9 Major depressive disorder, single episode, unspecified; E78.5 Hyperlipidemia, unspecified; E66.9 Obesity, unspecified; F12.10 Cannabis abuse, uncomplicated; F17.210 Nicotine dependence, cigarettes, uncomplicated; E87.6 Hypokalemia; E11.65 Type 2 diabetes mellitus with hyperglycemia; Z79.4 Long term (current) use of insulin; Z71.6 Tobacco abuse counseling; Z88.8 Allergy status to other drugs, medicaments and biological substances; Z95.5 Presence of coronary angioplasty implant and graft; Z90.710 Acquired absence of both cervix and uterus; Z83.3 Family history of diabetes mellitus; Z82.5 Family history of asthma and other chronic lower respiratory diseases; Z80.8 Family history of malignant neoplasm of other organs or systems; Z79.82 Long term (current) use of aspirin; Z79.899 Other long term (current) drug therapy; Z68.25 Body mass index [BMI] 25.0-25.9, adult

== ENCOUNTER 2020-01-02 19:58 | Observation (INO) | payer MEDICARE ==
[~2020-01-02] VITALS: Ht 160 cm; Wt 81.6 kg
[~2020-01-02 19:58] MED LIST changes: +ASPIRIN CHEWABL81 M1 PO; +CODEINE PO; +METOPROLOL SUCC50 M1 PO; +PACERONE200 MG PO; +PREDNISONE10 MG PO; +TYLENOL PO; +XARE20MG PO
[2020-01-02 20:00] VITALS: BP 132/70
[2020-01-02 20:35] LABS: BASO % 0.4 % (0.0-1.0); EOS # 0.2 10*3/uL (0.0-0.4); HEMATOCRIT 31.3 % (37.0-47.0); LYMPH # 0.7 10*3/uL (1.3-4.4); LYMPH % 8.7 % (27.0-41.0); MEAN CELL VOLUME 91.3 fl (81.0-99.0); MEAN CORPUSCULAR HGB 26.5 pg (27.0-31.0); MEAN CORPUSCULAR HGB CONC 29.1 g/dl (33.0-37.0); MEAN PLATELET VOLUME 10.7 fl (9.6-12.3); MONO # 0.9 10*3/uL (0.1-1.0); MONO % 12.3 % (3.0-9.0); NEUT # 5.7 10*3/uL (2.3-7.9); NEUT % 75.8 % (47.0-73.0); PLATELET COUNT AUTOMATED 166 10*3/uL (130-400); RED BLOOD COUNT 3.43 10*6/uL (4.10-5.10); RED CELL DISTRI WIDTH 20.5 % (0-14.5); WHITE BLOOD COUNT 7.5 10*3/uL (4.8-10.8)
[2020-01-02 20:49] LABS: ALBUMIN 2.9 gm/dl (3.1-4.5); CREATININE 1.18 mg/dL (0.55-1.02); POTASSIUM 4.2 mmol/L (3.5-5.1)
[2020-01-03] VITALS (7 sets, daily range): BP systolic 132–154; BP diastolic 69–112
[2020-01-03 03:13] LABS: BILIRUBIN NEGATIVE; BLOOD NEGATIVE (NEGATIVE); CLARITY CLEAR (CLEAR); COLOR YELLOW (YELLOW); GLUCOSE NEGATIVE; KETONE NEGATIVE; LEUKO ESTERASE 1+ (NEGATIVE); NITRITE NEGATIVE (NEGATIVE); SPECIFIC GRAVITY 1.025 (1.001-1.030)
[2020-01-03] MEDS ORDERED: LOPRESSOR25 MG PO (10:37)
[2020-01-03] MEDS ORDERED: PROPAFENONE HC150 MG PO (10:38)
[2020-01-03] MEDS ORDERED: PRILOSEC20 M1 PO (10:39)
[2020-01-03] MEDS ORDERED: ELIQUIS5 M1 PO (10:40)
[2020-01-03] MEDS ORDERED: MAGOX 400400 MG PO (10:40)
[2020-01-03] MEDS ORDERED: NATURE'S BLEND F1 MG PO (10:41)
[2020-01-03 10:43] LABS: BUN 31 mg/dl (7-24); CHLORIDE 104 mmol/L (98-107); CREATININE 0.93 mg/dL (0.55-1.02); POTASSIUM 4.7 mmol/L (3.5-5.1); SODIUM 138 mmol/L (136-145)
[2020-01-03] MEDS ORDERED: OLOPATADINE HCL5 ML OP (10:43)
[2020-01-04] VITALS: BP 116/69
[2020-01-04 06:02] LABS: BASO % 0.5 % (0.0-1.0); EOS # 0.1 10*3/uL (0.0-0.4); EOS % 1.8 % (1.0-4.0); HEMATOCRIT 31.6 % (37.0-47.0); LYMPH # 0.6 10*3/uL (1.3-4.4); LYMPH % 7.6 % (27.0-41.0); MEAN CELL VOLUME 90.3 fl (81.0-99.0); MEAN CORPUSCULAR HGB 26.3 pg (27.0-31.0); MEAN CORPUSCULAR HGB CONC 29.1 g/dl (33.0-37.0); MEAN PLATELET VOLUME 11.2 fl (9.6-12.3); MONO # 0.9 10*3/uL (0.1-1.0); MONO % 11.1 % (3.0-9.0); NEUT # 6.1 10*3/uL (2.3-7.9); NEUT % 78.4 % (47.0-73.0); PLATELET COUNT AUTOMATED 165 10*3/uL (130-400); RED CELL DISTRI WIDTH 19.7 % (0-14.5); WHITE BLOOD COUNT 7.7 10*3/uL (4.8-10.8)
[2020-01-04 06:14] LABS: ALBUMIN 2.9 gm/dl (3.1-4.5); CHLORIDE 101 mmol/L (98-107); CREATININE 0.77 mg/dL (0.55-1.02); POTASSIUM 4.3 mmol/L (3.5-5.1); SGOT/AST 24 IU/L (3-35); SGPT/ALT 14 U/L (12-78); SODIUM 136 mmol/L (136-145); TOTAL PROTEIN 6.7 gm/dL (6.4-8.2)
[2020-01-04 06:21] LABS: ALKALINE PHOSPHATASE 107 U/L (45-117); FREE T4 0.96 ng/dl (0.76-1.46)
[2020-01-04 06:22] LABS: BUN 18 mg/dl (7-24)
[2020-01-04 06:34] LABS: VITAMIN D, 25-HYDROXY 39.6 ng/mL (30-100)
[2020-01-04 06:49] LABS: ACT PARTIAL THROMBO TIME 30.9 SECONDS (20.0-32.1); INTERNATIONAL NORM RATIO 1.3 (2.0-3.5)
[2020-01-04 08:00] VITALS: BP 116/76
[2020-01-04 12:00] VITALS: BP 133/82
[2020-01-04 16:00] VITALS: BP 133/82
[2020-01-04 20:00] VITALS: BP 122/70
[2020-01-05 06:03] LABS: BASO % 0.5 % (0.0-1.0); EOS # 0.2 10*3/uL (0.0-0.4); EOS % 2.4 % (1.0-4.0); HEMATOCRIT 30.3 % (37.0-47.0); LYMPH # 0.8 10*3/uL (1.3-4.4); LYMPH % 9.8 % (27.0-41.0); MEAN CELL VOLUME 89.1 fl (81.0-99.0); MEAN CORPUSCULAR HGB 25.9 pg (27.0-31.0); MEAN PLATELET VOLUME 11.1 fl (9.6-12.3); NEUT # 5.6 10*3/uL (2.3-7.9); NEUT % 73.9 % (47.0-73.0); PLATELET COUNT AUTOMATED 171 10*3/uL (130-400); RED CELL DISTRI WIDTH 19.5 % (0-14.5); WHITE BLOOD COUNT 7.6 10*3/uL (4.8-10.8)
[2020-01-05 06:35] LABS: BUN 16 mg/dl (7-24); CHLORIDE 98 mmol/L (98-107); SODIUM 138 mmol/L (136-145)
[2020-01-05 06:36] LABS: CREATININE 0.86 mg/dL (0.55-1.02)
[2020-01-05 08:00] VITALS: BP 140/96
[2020-01-05] MEDS ORDERED: SYMB160 INH (09:20)
[2020-01-05] MEDS ORDERED: Humalog SQ (10:45)
[2020-01-05] MEDS ORDERED: HUMALOG JU100 UNIT/1 SQ (10:49)
[2020-01-05] MEDS ORDERED: ZOFRAN4 MG PO (10:50)
== END 2020-01-05 11:24 | disposition home or self-care (01) ==
LOC: ED 19:58 → EDHOLD 01-03 → 4E 01-03 00:24
PROVIDERS: Emergency Medicine; Internal Medicine; ADMIT Internal Medicine; ATTEND Internal Medicine
DX: E11.649 Type 2 diabetes mellitus with hypoglycemia without coma (principal); E87.2 Acidosis; D64.9 Anemia, unspecified; N17.0 Acute kidney failure with tubular necrosis; E44.0 Moderate protein-calorie malnutrition; I48.91 Unspecified atrial fibrillation; I10 Essential (primary) hypertension; M81.0 Age-related osteoporosis without current pathological fracture; F32.9 Major depressive disorder, single episode, unspecified; E78.5 Hyperlipidemia, unspecified; C34.90 Malignant neoplasm of unspecified part of unspecified bronchus or lung; R80.9 Proteinuria, unspecified; E66.9 Obesity, unspecified; Z68.31 Body mass index [BMI] 31.0-31.9, adult

== ENCOUNTER → 2020-01-17 | Day surgery (SDC) | payer MEDICARE ==
[~2020-01-17] MED LIST changes: +ELIQUIS5 M1 PO; +HUMALOG JU100 UNIT/1 SQ; +Humalog SQ; +LOPRESSOR25 MG PO; +MAGOX 400400 MG PO; +NATURE'S BLEND F1 MG PO; +OLOPATADINE HCL5 ML OP; +PRILOSEC20 M1 PO; +PROPAFENONE HC150 MG PO; +SYMB160 INH; +ZOFRAN4 MG PO
[2020-01-17 08:10] VITALS: BP 137/65
[2020-01-17 09:47] VITALS: BP 125/84
[2020-01-17 10:18] LABS: BODY FLUID WBC 63 /uL
[2020-01-17 11:30] LABS: BF LYMPHOCYTES 34 %; BF MACROPHAGES 49 %; BF MESOTHELIALS 7 %; BF NEUTROPHILS 10 %
== END | disposition home or self-care (01) ==
PROVIDERS: ATTEND Internal Medicine Critical Care Medicine
DX: J90 Pleural effusion, not elsewhere classified (principal); Z85.118 Personal history of other malignant neoplasm of bronchus and lung

== ENCOUNTER 2020-01-21 14:11 | Emergency (ER) | payer MEDICARE ==
[~2020-01-21] VITALS: Wt 82.6 kg
[2020-01-21 14:58] LABS: HEMATOCRIT 31.1 % (37.0-47.0); MEAN CELL VOLUME 98.7 fl (81.0-99.0); MEAN CORPUSCULAR HGB 25.1 pg (27.0-31.0); MEAN CORPUSCULAR HGB CONC 25.4 g/dl (33.0-37.0); NUCLEATED RED BLOOD CELL 0.4 10*3/uL (0.0-0.0); NUCLEATED RED BLOOD CELL 4.4 % (0.0-0.0); PLATELET COUNT AUTOMATED 121 10*3/uL (130-400); RED BLOOD COUNT 3.15 10*6/uL (4.10-5.10); RED CELL DISTRI WIDTH 19.8 % (0-14.5); WHITE BLOOD COUNT 8.2 10*3/uL (4.8-10.8)
[2020-01-21 15:09] LABS: ACT PARTIAL THROMBO TIME 58.2 SECONDS (20.0-32.1)
[2020-01-21 15:16] LABS: ALBUMIN 2.3 gm/dl (3.1-4.5); CREATININE 1.71 mg/dL (0.55-1.02); TOTAL PROTEIN 5.7 gm/dL (6.4-8.2)
[2020-01-21 15:21] LABS: BURR CELLS MODERATE; PLATELET SUFFICIENCY LOW (NORMAL); TOTAL CELLS COUNTED 100 #CELLS
[2020-01-21 15:22] LABS: ACANTHOCYTES FEW; OVALOCYTES FEW
[2020-01-21 15:23] LABS: MICROCYTOSIS SLIGHT; POLYCHROMASIA SLIGHT
[2020-01-21 15:24] LABS: POTASSIUM 6.2 mmol/L (3.5-5.1); TROPONIN I 0.853 ng/ml (<0.045)
== END 2020-01-21 17:35 | disposition expired ==
LOC: ED 14:29
PROVIDERS: Emergency Medicine
DX: I46.9 Cardiac arrest, cause unspecified (principal); E11.9 Type 2 diabetes mellitus without complications; E66.9 Obesity, unspecified; I48.91 Unspecified atrial fibrillation; I10 Essential (primary) hypertension; F32.9 Major depressive disorder, single episode, unspecified; E78.5 Hyperlipidemia, unspecified; I25.2 Old myocardial infarction; M81.0 Age-related osteoporosis without current pathological fracture; I25.10 Atherosclerotic heart disease of native coronary artery without angina pectoris; Z95.5 Presence of coronary angioplasty implant and graft; Z85.118 Personal history of other malignant neoplasm of bronchus and lung; Z88.8 Allergy status to other drugs, medicaments and biological substances; Z79.82 Long term (current) use of aspirin; Z79.4 Long term (current) use of insulin; Z79.899 Other long term (current) drug therapy; Z68.31 Body mass index [BMI] 31.0-31.9, adult; Z90.711 Acquired absence of uterus with remaining cervical stump